=== PATIENT | male | born 1980 | race Caucasian/White ===

== ENCOUNTER 2020-06-07 15:57 | Emergency (ER) | payer OTHER ==
[~2020-06-07 15:57] MED LIST: CYCLOBENZAPRINE10 MG PO; FLEXERIL 10 MG10 MG PO; IBUPROFEN600 MG PO; PREDNISONE 50 M50 MG PO; TRAMADOL HCL50 MG PO
[2020-06-07] MEDS ORDERED: CYCLOBENZAPRINE10 MG PO (17:35)
== END 2020-06-07 17:45 | disposition home or self-care (01) ==
LOC: ER1 15:57
DX: S39.012A Strain of muscle, fascia and tendon of lower back, initial encounter (principal); F17.290 Nicotine dependence, other tobacco product, uncomplicated; Z79.1 Long term (current) use of non-steroidal anti-inflammatories (NSAID); Z79.899 Other long term (current) drug therapy; X50.9XXA Other and unspecified overexertion or strenuous movements or postures, initial encounter
CPT/HCPCS: 99283